=== PATIENT | female | born 1970 | race Caucasian/White ===

== ENCOUNTER 2020-05-01 15:50 | Outpatient (CLI) | payer OTHER, SELFPAY ==
--- NOTE | ~2020-05-01 | MM_ITS ---
EXAMINATION: MM scrn jose c implant BI w dior HISTORY: Screening mammogram TECHNIQUE: Craniocaudal and mediolateral oblique 3-D tomosynthesis images with implant displacement a nd synthetic 2-D images were generated. Craniocaudal and mediolateral oblique views of the breasts wi thout implant displacement were obtained using full field digital mammography. CAD analysis was submi tted and interpreted. COMPARISON: 05/18/2018, 05/10/2017 BREAST PARENCHYMAL COMPOSITION: The breasts are heterogeneously dense, which may obscure small masses . FINDINGS: There is no evidence of suspicious mass, calcification, or architectural distortion to sugg est malignancy in either breast. There has been no suspicious interval change. IMPRESSION: 1. No mammographic evidence of malignancy. 2. Recommend routine screening mammography in one year. BI-RADS Category 1: Negative Reviewed, dictated and finalized at location A. [employer]
== END 2020-05-01 15:51 | disposition home or self-care (01) ==
LOC: ANHIMG 15:53
PROVIDERS: PCP Nurse Practitioner Adult Health; Visit Provider Nurse Practitioner Adult Health
DX: Z12.31 Encounter for screening mammogram for malignant neoplasm of breast (principal)
CPT/HCPCS: 77063; 77067

== ENCOUNTER 2021-09-02 01:13 | Day surgery (SDC) | payer OTHER, SELFPAY ==
[2021-08-26 09:35] VITALS: BMI 21.4
[2021-09-02 08:54] VITALS: BP 131/85; PULSE 75; RESP 20; TEMP 36.6; O2SAT 99
--- NOTE | 2021-09-02 09:08 | WPDANESEPPF ---
Anes - Initial Pre Proc Eval Procedure: Operation Date: 09/02/21 09:45 Proposed Procedures p Screening Colonoscopy - Joselito Jeffery MD Date/Time: 09/02/21 09:08 Surgeon: Joselito Jeffery MD Pre Op Diagnosis: neoplasm screening Patient Data Age: 51 Gender: F Height: 1.7 m Weight: 59.4 kg Last Vital Signs Temp 36.6 C 09/02/21 08:54 Pulse 75 09/02/21 08:54 Resp 20 09/02/21 08:54 BP 131/85 09/02/21 08:54 Pulse Ox 99 09/02/21 08:54 Allergies Allergy/AdvReac Type Severity Reaction Status Date / Time No Known Allergies Allergy Verified 09/02/21 08:52 Home Medications Medication Instructions Recorded Confirmed Type alprazolam 0.25 mg PO DAILY 08/26/21 08/26/21 History sertraline 50 mg PO DAILY 08/26/21 08/26/21 History Patient hx anesthesia problems: none Family hx anesthesia problems: none Results Review: All pre-operative results and documents have been reviewed as part of the pre-operative evaluation. [facility] Past Medical History Medical History (Updated 09/02/21 @ 09:08 by Gianni Rowan MD) Anxiety Hyperlipidemia Surgical History Surgical History (Updated 09/02/21 @ 09:08 by Gianni Rowan MD) H/O breast augmentation History of endometrial ablation History of lumbar surgery Social History Social History Smoking status: Never smoker Alcohol intake: current Substance use: never Substance use type: does not use Living arrangements: with family Spiritual care concerns: No Anes - Eval Final PreProcedure Day of Procedure 09/02/21 09:08 Patient weight: normal Heart: regular rate and rhythm Lungs: clear to auscultation Airway: Mallampati scale class II Neurological: alert and oriented Last oral intake: >/= 8 hours ASA classification: II Emergent: no Anesthetic plan: proceed Anesthesia type and monitoring: general GIVS and standard monitoring Results Review: All pre-operative results and documents have been reviewed as part of the pre-operative evaluation. Informed Consent: The patient's anesthetic plan and its attendant risks and benefits were discussed with the patient/family/POA. Questions were solicited and answers provided to the satisfaction of the patient/family/POA.
[2021-09-02] MEDS: LACTATED RINGERS 1,000 ML 150 ML IV CONT (09:10)
--- NOTE | 2021-09-02 09:45 | PM.HPGS ---
History of Present Illness History of Present Illness Consent: Risks, benefits, and alternatives have been discussed and questions answered. Patient agrees to proceed with procedure. Chief complaint: neoplasm screening Narrative: Jovana Allen is a 51 year old female here for first screening colonoscopy Review of Systems Constitutional: Constitutional: Denies headache(s) and Denies weakness Eyes: Eyes: Denies blurry vision ENT: Reports Normal hearing present, Denies headache(s) and Denies neck pain Cardiovascular: Cardiovascular: Denies chest pain and Denies dyspnea Respiratory: Respiratory: Denies dyspnea Gastrointestinal: Gastrointestinal: Reports no additional gastrointestinal complaints Genitourinary: Genitourinary: Denies dysuria Musculoskeletal: Musculoskeletal: Denies neck pain Integumentary/Breasts: Skin/Breast: Denies dry skin Neurologic: Reports Normal hearing present, Denies headache(s) and Denies weakness Psychiatric: Psychiatric: Denies anxiety Endocrine: Endocrine: Denies change in body appearance Hematologic/Lymphatic: Hematologic/Lymphatic: Denies easy bleeding Allergic/Immunologic: Allergic/Immunologic: Denies urticaria PMF Past Medical History Medical History (Updated 09/02/21 @ 09:45 by Joselito Jeffery MD) Anxiety Colon cancer screening Hyperlipidemia Surgical History Surgical History (Updated 09/02/21 @ 09:08 by Gianni Rowan MD) H/O breast augmentation History of endometrial ablation History of lumbar surgery Social History Social History Smoking status: Never smoker Alcohol intake: current Substance use: never Substance use type: does not use Living arrangements: with family Spiritual care concerns: No Meds Home Medications and Allergies Home Medications Medication Instructions Recorded Confirmed Type alprazolam 0.25 mg PO DAILY 08/26/21 08/26/21 History sertraline 50 mg PO DAILY 08/26/21 08/26/21 History Allergies Allergy/AdvReac Type Severity Reaction Status Date / Time No Known Allergies Allergy Verified 09/02/21 08:52 Vital Signs Vital Signs - 24 hr 09/02/21 08:54 Temperature 97.9 F Pulse Rate 75 Respiratory Rate 20 Blood Pressure 131/85 Pulse Oximetry 99 Exam Const: General: comfortable and no acute distress HENMT: General nose exam: Normal nares present Eyes: General: appearance normal, both eyes and all related structures Neck: Neck: no JVD Resp: Auscultation: clear to auscultation bilaterally Cardio: Rate: regular rate Rhythm: regular rhythm GI: Inspection: non-distended GI Palp: Yes Soft to palpation Skin: General skin exam: normal color Neuro: General: gait normal Speech: normal speech Extrem: General: normal to inspection Psych: Mental Status: mental status grossly normal Assessment and Plan Assessment and plan (1) Colon cancer screening: Code(s): Z12.11 - Encounter for screening for malignant neoplasm of colon Status: Acute Assessment and Plan: colonoscopy
[2021-09-02 10:14] VITALS: BP 96/53; PULSE 68; RESP 27; O2SAT 97
[2021-09-02 10:24] VITALS: BP 90/54; PULSE 63; RESP 19; O2SAT 98
[2021-09-02 10:34] VITALS: BP 105/72; PULSE 63; RESP 16; O2SAT 100
== END 2021-09-02 10:47 | disposition home or self-care (01) ==
PROVIDERS: PCP Nurse Practitioner Adult Health; Visit Provider Internal Medicine Gastroenterology
PROC: 0DJD8ZZ Inspection of Lower Intestinal Tract, Via Natural or Artificial Opening Endoscopic (ICD-10-PCS; CPT 45378; principal; 2021-09-02 09:45)
DX: Z12.11 Encounter for screening for malignant neoplasm of colon (principal); D12.5 Benign neoplasm of sigmoid colon; K64.8 Other hemorrhoids; F41.9 Anxiety disorder, unspecified
CPT/HCPCS: 45385; 88305; J2704; J7120